=== PATIENT | female | born 1985 | race Caucasian/White ===

== ENCOUNTER 2016-12-12 13:00 | Outpatient (RCR) | payer BC, MEDICAID ==
--- NOTE | 2016-12-05 12:45 | PT/OT/ST INITIAL EVALUATION ---
Department of Health and Human Services Form Approved [facility] Care Financing Administration OMB No. [id number] PLAN OF CARE/ASSESSMENT FOR OUTPATIENT REHABILITATION (Complete for Initial Claims Only) 1. PATIENT'S NAME Uday Ríos 2. ACC # [id number] 3. HICN NA 4. PROVIDER NO. [id number] 5. TYPE: PT 6. PRIOR HOSPITALIZATION None 7. PRIMARY DX Low back pain 8. SECONDARY DX Hypermobility and back weakness 9. ONSET DATE 11 years ago 10. REFERRAL DATE 11/25/2016 11. SOC. DATE 12/02/2016 12. TIME OF EVAL 11 a.m. 12. REFERRING PHYSICIAN Dr. Aleksandr Segura 13. CHARGES/UNITS NA 14. G CODES NA 15. PRIOR LEVEL OF FUNCTION; PERTINENT HISTORY (Prior therapy results, reason for referral.) S: Reason for referral: The patient was referred to physical therapy by Dr. Aleksandr Segura with the diagnosis of back pain. The patient reports that she has been experiencing pain at her back off and on for approximately 11 years. The patient describes the pain as being at her low back to mid back region. The patient does not report any pain at night. She has not had any surgeries. She has not had any radicular symptoms into her lower extremities. Occupational and social health history: The patient works as a [employer], she is currently not working. She stays at home with her kids. Enjoys gardening. States she is very active. Personal health rating: Rates overall health as good. Pain rating: Current pain rating is 10/10. Aggravating factors: She notes that usual physical activity makes it worse, especially sitting for long periods or standing for long periods. Relieving factors: She gets some relief when resting or when stretching. She notes the pain is less usually when she is moving. Past medical history: Includes arthritis, severe depression, kidney problems. Current medications: She occasionally takes pain meds as needed. Patient's Goal: The patient's goal for therapy is to help keep the pain way for longer periods. 16. INITIAL ASSESSMENT/SAFETY PRECAUTIONS/MEDICAL COMPLICATIONS (Level of function at start of care. Be specific, use objective measures, list problems.) O: APPEARANCE AND OBSERVATION: The patient is a healthy looking 30-year-old female. In standing she demonstrates slight anterior pelvic tilt with minimal lordosis. Slight left lateral shift. PALPATION: The patient has increased muscle tension along her left lumbar paraspinals and tenderness and tension noted into her left piriformis region and glute. In supine, the patient did demonstrate a left posterior innominate rotation; however, her leg length was equal. RANGE OF MOTION/FLEXIBILITY: Trunk range of motion flexion 75%, extension 50%, left side bending normal limits, right side bending on 50% with tightness at her left low back region. Rotation was normal limits, however, she did complain of tightness at her left low back region. Hamstring flexibility 80 degrees. Single knee to chest normal limits. Piriformis minimally limited bilaterally. STRENGTH: Lower extremity strength 5/5 manual muscle test, abdominal strength 4/5 manual muscle test. Some difficulty initiating lower abdominals. JOINT MOBILITY: The patient did demonstrate increased hypermobility along her lumbar and thoracic spine with gentle joint mobilizations. TODAY'S TREATMENT: Treatment included initial evaluation followed by instruction on home exercise program for flexibility and stabilization and strengthening. Gentle manual traction was performed along the patient's left lumbar paraspinals. The treatment was ended with moist heat to the low back region. 17. INITIAL POC: (Specify procedures, modalities, short and retirement goals) A: The patient presents with Chronic back pain as a result of hypermobility along her lumbar spine. PROGNOSIS: The patient is a good candidate for physical therapy to educate and instruct on core stabilization and strengthening. GOALS: 1. The patient to be compliant with home exercise program in 2 weeks. 2. The patient to demonstrate good lower abdominal control with exercise in 4 weeks. 3. The patient to report 50% decrease in general pain at her back with normal daily activities in 4 weeks. 4. The patient to demonstrate full trunk range of motion in all directions without pain in 6 weeks. P: The patient will be seen 2 times a week over the next 6 weeks. Treatment to include modalities of manual therapy to decreased pain and muscle guarding as needed. We will progress with the patient with range of motion, flexibility, stabilization and strengthening activities. We will also continue to educate the patient on overall diagnosis and importance of body mechanics and posture. 18. FREQUENCY 2 times a week 19. DURATION 6 weeks 20. FUNCTIONAL LEVEL (End of claim period) 21. PHYSICIAN SIGNATURE ? ON FILE OR ENTER HERE: 22. DATE: I certify the need for these services furnished under this plan of care and if for partial hospitalization. 23. CERTIFICATION FROM THROUGH FORM [id number]
[~2016-12-12 13:00] MED LIST: FERR325T36 PO; FLUO20TA28 PO; No home medications; POLY17PO6 PO; PREN1TAB39 PO; RANI150T15 PO
[2016-12-13] MEDS ORDERED: HYDR-33 PO (10:42)
[2016-12-13] MEDS ORDERED: OXYC15TA79 PO (10:42)
[2016-12-13] MEDS ORDERED: CYCL10TA45 PO (10:47)
== END 2017-01-12 12:00 | disposition home or self-care (01) ==
LOC: PT 13:00
PROVIDERS: ATTEND Family Medicine
DX: M54.5 Low back pain (principal)

== ENCOUNTER 2016-12-13 09:27 | Emergency (ER) | payer OTHER, MEDICAID ==
[~2016-12-13] VITALS: Ht 170.2 cm; Wt 59.0 kg
--- NOTE | 2016-12-13 09:48 | NUR ---
PD HERE TO TALK WITH PT. MALE VISITOR AT BEDSIDE. CL
--- NOTE | 2016-12-13 09:49 | NUR ---
PT BEGINS TO TURN HEAD SIDE TO SIDE & STATES OUT LOUD "NOW MY NECK HURTS...LIKE AN ACHE". RATES NECK PAIN 01/09. DR WILEY INFORMED. CL
[2016-12-13 11:55] VITALS: BP 108/68
== END 2016-12-13 11:12 | disposition home or self-care (01) ==
LOC: EDUNIT# 09:27 → ED 09:29
DX: G89.11 Acute pain due to trauma (principal); M54.6 Pain in thoracic spine; V43.52XA Car driver injured in collision with other type car in traffic accident, initial encounter; Y92.410 Unspecified street and highway as the place of occurrence of the external cause; Y99.9 Unspecified external cause status
CPT/HCPCS: 72050; 72072; 99283; 99284

== ENCOUNTER → 2016-12-13 | Outpatient (CLI) | payer OTHER, MEDICAID | LOC: EMS 09:42 | PROVIDERS: ATTEND Emergency Medicine | DX: M25.512 Pain in left shoulder (principal); M25.511 Pain in right shoulder; M54.89 Other dorsalgia; V43.52XA Car driver injured in collision with other type car in traffic accident, initial encounter; Y92.488 Other paved roadways as the place of occurrence of the external cause ==

== ENCOUNTER → 2017-01-16 | Outpatient (CLI) | payer MEDICAID ==
[~2017-01-16] MED LIST changes: +CYCL10TA45 PO; +HYDR-33 PO; +OXYC15TA79 PO
--- NOTE | 2017-01-16 14:02 | Diagnostic Imaging Report ---
PROCEDURE: CT abdomen and pelvis without contrast. TECHNIQUE: Multiple contiguous axial images were obtained through the abdomen and pelvis without the use of intravenous contrast. INDICATION: Bilateral flank pain. COMPARISON: None available. FINDINGS: The lung bases are clear. No pericardial or pleural effusion. Kidneys are symmetric in size. No renal or ureteral calculi. No obstructive uropathy on either side. The urinary bladder is distended without focal wall thickening and there are no intraluminal calculi. Uterus is normal in appearance for patient's age, and there is an IUD appropriately positioned within the endometrial canal. No suspicious adnexal mass. Evaluation of the abdominal viscera is mildly limited without IV contrast. Allowing for this, liver, spleen, pancreas, and adrenals are normal. The stomach is decompressed. No bowel obstruction. The gallbladder is decompressed. No biliary duct dilatation. No pericolonic inflammatory changes. The appendix is not seen with certainty, although there are no inflammatory changes in the right lower quadrant to suggest acute appendicitis. No discrete abdominal or pelvic lymphadenopathy. Please note that evaluation is limited without IV contrast and due to the lack of intra-abdominal fat. No concerning osseous lesions. IMPRESSION: No acute intra-abdominal process. Specifically, no obstructive uropathy or urinary tract calculi. Dictated by: Dictated on workstation # [id number]
== END ==
LOC: RAD 13:12
PROVIDERS: ATTEND Family Medicine
DX: R10.9 Unspecified abdominal pain (principal)
CPT/HCPCS: 74176